=== PATIENT | female | born 1970 | race Caucasian/White ===

== ENCOUNTER 2017-06-25 13:39 | Emergency (ER) | payer MEDICAID ==
[~2017-06-25] VITALS: Ht 154.9 cm; Wt 67.6 kg
[2017-06-25 13:54] VITALS: Ht 154.9 cm; Wt 67.6 kg
[2017-06-25 17:08] VITALS: BP 117/79
== END 2017-06-25 17:08 | disposition home or self-care (01) ==
LOC: ED 13:39
DX: S86.912A Strain of unspecified muscle(s) and tendon(s) at lower leg level, left leg, initial encounter (principal); X58.XXXA Exposure to other specified factors, initial encounter; Y93.89 Activity, other specified; Y92.89 Other specified places as the place of occurrence of the external cause; Y99.8 Other external cause status
CPT/HCPCS: Q0092